=== PATIENT | male | born 1965 | race Caucasian/White ===

== ENCOUNTER 2016-12-12 11:51 | Emergency (ER) | payer MEDICAID ==
[2016-12-12 11:55] VITALS: TEMP 98.2
[2016-12-12] MEDS ORDERED: NS 1,000 ML IV ONE (12:27)
[2016-12-12 12:56] LABS: HEMATOCRIT 44.2 % (40.0-51.0); HEMOGLOBIN 15.5 g/dL (13.7-17.5); MEAN CELL HEMOGLOBIN 34.6 pg (27.9-34.1); MEAN CELL HEMOGLOBIN CONCENTR. 35.1 g/dL (32.4-36.7); MEAN CELL VOLUME 98.7 fL (81.5-99.8); RED BLOOD CELL COUNT 4.48 10^6/uL (4.40-6.38); RED CELL DISTRIBUTION WIDTH 13.1 % (11.5-15.2)
[2016-12-12 13:06] LABS: ALANINE AMINOTRANSFERASE 49 IU/L (21-72); ALBUMIN 4.3 g/dL (3.5-5.0); ALKALINE PHOSPHATASE 92 IU/L (38-126); ANION GAP 14 mEq/L (8-16); ASPARTATE AMINOTRANSFERASE 83 IU/L (17-59); BILIRUBIN,TOTAL 0.6 mg/dL (0.1-1.4); CARBON DIOXIDE 21 mEq/l (22-31); CHLORIDE 107 mEq/L (97-110); CREATININE 0.7 mg/dL (0.7-1.3); GLOMERULAR FILTRATION RATE > 60; GLUCOSE 111 mg/dL (70-100); POTASSIUM 4.9 mEq/L (3.5-5.2); SODIUM 142 mEq/L (134-144); TOTAL PROTEIN 7.4 g/dL (6.3-8.2)
--- NOTE | 2016-12-12 13:36 | EDPHY ---
General - History Smoking Status: Current every day smoker Narrative: CHIEF COMPLAINT: Right lower quadrant pain, hernia HISTORY OF PRESENT ILLNESS: Patient complains of hernia of the right inguinal region. This been present since June. Symptoms wax and wane at . Now he has had pains or 3 days. 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 It does come and go. He can feel the hernia reduced at times. He feels that the pain is severe and is too much as the hernia seems to be problematic with minimal bearing down and even when he coughs. No difficulty with bowel movements. He has had some nausea and diaphoresis. No generalized abdominal pain no other associated complaints or modifying factors. No previous abdominal surgeries as an adult. One as a 3-month-old child that he does not know about. REVIEW OF SYSTEMS: Ten systems reviewed and are negative unless otherwise noted in the HPI PAST MEDICAL HISTORY: Denies PAST SURGICAL HISTORY: Unknown surgery at 3mos of age SOCIAL HISTORY: Smokes cigarettes. Daily tobacco use. Marijuana use FAMILY HISTORY: Non-contributory EXAMINATION General Appearance: Alert, no distress Head: normocephalic, atraumatic Eyes: Pupils equal and round, no conjunctival pallor or injection ENT, Mouth: Mucous membranes moist Neck: Normal inspection, supple, non-tender Respiratory: Lungs are clear to auscultation. Mild rhonchi. No wheezing. No consolidation Cardiovascular: Regular rate and rhythm. no murmur symmetric distal pulses. Gastrointestinal: Abdomen is soft and nondistended. Tenderness and fullness in the right inguinal canal. Palpable hernia that I could not reduce. Bowel sounds are present in all 4 quadrants. Neurological: A&O, nonfocal, normal gait Skin: Warm and dry, no rash no petechiae or purpura Extremities: Nontender, no pedal edema Psychiatric: Mood and affect normal DIFFERENTIAL DIAGNOSES: Including but not limited to inguinal hernia, incarcerated inguinal hernia, strangulated inguinal hernia, appendicitis, diverticulitis, colitis MDM: 1:20 p.m. Right inguinal hernia that I do not appreciate as incarcerated. He describes a paroxysmal hernia comes and goes. His concern is that it has been increasingly painful and easily herniated with minimal Valsalva. Vital signs stable. I have ordered CT scan of the abdomen and pelvis. CBC is unremarkable. Chemistry is pending. 2:30 p.m. Case discussed with radiologist. No evidence of hernia. There is incidental note a left-sided adrenal abnormality as documented. 2:55 p.m. Case discussed with Dr. Feliz. We discussed the history, physical exam and CT findings. This includes the incidental adrenal nodule findings. Dr. Feliz recommends patient follow up with General surgery outpatient. He recommends next available appointment within the next week. Also recommend standard hernia precautions. 3:00 p.m. Case discussed with the patient and spouse. I informed him of the incidental finding of the left adrenal mass. I informed him of the recommended follow-up for both this and the hernia. We discussed ED precautions for worsening pain, vomiting, constipation, fever. They was her understanding of this. He is discharged home with pain medication, light duty instructions and outpatient follow-up with General surgery. (Gordon Santiago) Medical Decision Making: The patient was evaluated and managed by the Physician Beauty Operator. My co- signature indicates that I have reviewed this chart and I agree with the findings and plan of care as documented. I am the secondary supervising physician. (Melly Mahoney) - Objective Vital Signs: Initial Vital Signs Temperature (C) 36.8 C 12/12/16 11:51 Heart Rate 109 H 12/12/16 11:51 Respiratory Rate 18 12/12/16 11:51 Blood Pressure 124/91 H 12/12/16 11:51 O2 Sat (%) 94 12/12/16 11:51 O2 Delivery Mode Room Air Allergies/Adverse Reactions: No Known Allergies Allergy (Verified 10/04/13 22:01) Home Medications: Medication Instructions Recorded Hydrocodone/APAP 5/325 [Zenda 1 - 2 tab PO Q4H PRN #13 tab 12/12/16 5/325 (*)] Laboratory Results: Laboratory Results 12/12/16 12:25 12/12/16 12:25 Medications Given: Discontinued Medications Sodium Chloride (Ns) 1,000 mls @ 0 mls/hr IV ONCE ONE; Wide Open PRN Reason: Protocol Stop: 12/12/16 12:28 Last Admin: 12/12/16 12:28 Dose: 1,000 mls Departure - Departure Disposition: Home, Routine, Self-Care Clinical Impression: Inguinal hernia of right side without obstruction or gangrene, Mass of uncertain behavior of adrenal gland Condition: Good Instructions: Inguinal Hernia (ED) Additional Instructions: 1. Follow up with General surgery for definitive care for hernia and further workup of the adrenal mass 2. Return to ER for worsening pain, fever, chills, constipation or vomiting 3. Light active duty Referrals: NONE *PRIMARY CARE P,. [Primary Care Provider] - As per Instructions Igor Morocho MD [Medical Doctor] - As per Instructions Stand Alone Forms: Work Limited Duty Prescriptions: Hydrocodone/APAP 5/325 [Zenda 5/325 (*)] 1 - 2 tab PO Q4H PRN #13 tab PRN Reason: Pain, Moderate
[2016-12-12] MEDS ORDERED: IOPAMIDOL (ISOVUE-300) 100 ML BTL ONE (13:44)
[2016-12-12 15:04] VITALS: BP 138/77; PULSE 80; RESP 14; O2SAT 97
== END 2016-12-12 15:04 | disposition home or self-care (01) ==
DX: K40.90 Unilateral inguinal hernia, without obstruction or gangrene, not specified as recurrent (principal); D44.10 Neoplasm of uncertain behavior of unspecified adrenal gland; F17.210 Nicotine dependence, cigarettes, uncomplicated; E86.9 Volume depletion, unspecified
CPT/HCPCS: Q9967

== ENCOUNTER 2016-12-26 06:12 | Inpatient (IN) | payer MEDICAID ==
[~2016-12-26 06:12] MED LIST: ceFAZolin 2 GM/DEXTROSE 100 ML IV ONE
--- NOTE | 2016-12-26 07:20 | PDHPUP ---
History & Physical Update H&P update statement: This history and physical update is based on an assessment of the patient which was completed after admission or registration (within 24 hours), but prior to the surgery/procedure. H&P update: H&P reviewed & patient examined, no change in patient's condition since H&P completed
[2016-12-26] MEDS: NICOTINE 14 MG/24 HR PATCH TD SCH ×2 (07:24→13:40)
[2016-12-26] MEDS: ceFAZolin 2 GM/DEXTROSE 100 ML IV ONE ×2 (07:24→09:11)
[2016-12-26] MEDS ORDERED: LIDOCAINE 1% 2 ML INJ ID PRN (07:38)
[2016-12-26] MEDS ORDERED: LR 1,000 ML IV ONE (07:38)
[2016-12-26] MEDS ORDERED: HYDROmorphONE/DILAUDID 1 MG/ML INJ IVP PRN ×2 (08:40→12:17)
[2016-12-26] MEDS ORDERED: ALBUTEROL 3 ML DEYVIAL IH PRN (08:40)
[2016-12-26] MEDS ORDERED: OXYCODONE/APAP 5/325 TAB PO PRN (08:40)
[2016-12-26] MEDS ORDERED: NALOXONE HCL 0.4 MG/ML INJ IVP PRN (08:40)
[2016-12-26] MEDS ORDERED: ONDANSETRON 4 MG/2 ML VIAL IVP PRN ×2 (08:40→12:17)
--- NOTE | 2016-12-26 08:42 | PDANEPAE ---
ANE History of Present Illness adrenalectomy ANE Past Medical History - Cardiovascular History Hx Hypertension: No Hx Arrhythmias: No Hx Chest Pain: No Hx Coronary Artery / Peripheral Vascular Disease: No Hx CHF / Valvular Disease: No Hx Palpitations: No - Pulmonary History Hx COPD: No Hx Asthma/Reactive Airway Disease: No Hx Recent Upper Respiratory Infection: No Hx Oxygen in Use at Home: No Hx Sleep Apnea: No Sleep Apnea Screening Result - Last Documented: Negative - Neurologic History Hx Cerebrovascular Accident: No Hx Seizures: No Hx Dementia: No - Endocrine History Hx Diabetes: No - Renal History Hx Renal Disorders: No - Liver History Hx Hepatic Disorders: No - Neurological & Psychiatric Hx Hx Neurological and Psychiatric Disorders: No - Cancer History Hx Cancer: No - Congenital Disorder History Hx Congenital Disorders: No - GI History Hx Gastrointestinal Disorders: Yes Gastrointestinal History Comment: INTERMITTENT REFLUX - Chronic Pain History Chronic Pain: Yes (RT GROIN) - Surgical History Prior Surgeries: NONE ANE Review of Systems Review of Systems: - Exercise capacity METS (RN): 4 METS ANE Patient History - Allergies Allergies/Adverse Reactions: No Known Allergies Allergy (Verified 10/04/13 22:01) - Home Medications Home Medications: NK [No Known Home Meds] 12/23/16 [Last Taken Unknown] - NPO status NPO Since - Liquids (Date): 12/25/16 NPO Since - Liquids (Time): 17:00 NPO Since - Solids (Date): 12/25/16 NPO Since - Solids (Time): 17:00 - Smoking Hx Smoking Status: Heavy smoker - Family Anes Hx Family Hx Anesthesia Complications: NEG ANE Labs/Vital Signs - Vital Signs Blood Pressure: 123/68 Heart Rate: 69 Respiratory Rate: 16 O2 Sat (%): 98 Height: 182.88 cm Weight: 72.575 kg ANE Physical Exam - Airway Neck exam: FROM Mallampati Score: Class 2 Mouth exam: poor dentition - Pulmonary Pulmonary: clear to auscultation - Cardiovascular Cardiovascular: regular rate and rhythym - ASA Status ASA Status: II ANE Anesthesia Plan Anesthesia Plan: general endotracheal anesthesia
[2016-12-26] MEDS ORDERED: MIDAZOLAM 2 MG/2 ML VIAL IVP ONE (08:43)
[2016-12-26] MEDS ORDERED: HYDROmorphONE/DILAUDID 2 MG/ML INJ ONE (08:46)
[2016-12-26] MEDS ORDERED: PROPOFOL 200 MG/20 ML VIAL ONE (08:47)
[2016-12-26] MEDS ORDERED: LIDOCAINE 2% 5 ML SDV ONE (08:47)
[2016-12-26] MEDS ORDERED: ROCURONIUM 50 MG/5 ML VIAL ONE (08:49)
[2016-12-26] MEDS ORDERED: BUPIVACAINE 0.5% 30 ML SDV ONE (08:49)
[2016-12-26] MEDS ORDERED: HEPARIN 1000 UNIT/1 ML MDV ONE (08:50)
[2016-12-26] MEDS ORDERED: ONDANSETRON 4 MG/2 ML VIAL ONE (08:50)
[2016-12-26] MEDS ORDERED: DEXAMETHASONE 4 MG/ML VIAL ONE (08:50)
[2016-12-26] MEDS ORDERED: ROCURONIUM 100 MG/10 ML VIAL ONE (09:35)
[2016-12-26] MEDS ORDERED: NEOSTIGMINE METHYLSULFATE 3 MG/3 ML SYR ONE (10:45)
[2016-12-26] MEDS ORDERED: epHEDrine SULFATE 10 MG/ML SYR ONE (10:46)
[2016-12-26] MEDS ORDERED: SUGAMMADEX SODIUM 200 MG/2 ML VIAL IVP ONE (11:51)
--- NOTE | 2016-12-26 12:15 | POSTANESTH ---
Post Anesthetic Evaluation Cardiovascular Status: Normal, Stable Respiratory Status: Normal, Stable Level of Consciousness/Mental Status: Can Participate in Eval, Alert and Oriented Pain Control: Adequate, Prn Tx Ordered Nausea/Vomiting Control: Adequate, Prn Tx Ordered Complications Possibly Related to Anesthesia: None Noted
[2016-12-26] MEDS ORDERED: fentaNYL 100 MCG/2 ML INJ ONE (12:16)
[2016-12-26] MEDS ORDERED: ONDANSETRON DISINTEGRATING 4 MG TAB PO PRN (12:17)
[2016-12-26] MEDS ORDERED: ACETAMINOPHEN 325 MG TAB PO PRN (12:17)
[2016-12-26] MEDS: fentaNYL 100 MCG/2 ML INJ IVP PRN ×2 (12:18→12:27)
--- NOTE | 2016-12-26 12:23 | POSTOPPROG ---
Post Op Note Date of Operation: 12/26/16 Surgeon: Igor Morocho Hotel Baggage Handler: Shahnaz Cartwright Anesthesiologist: Padmini Anesthesia: GET(General Endotracheal) Pre-op Diagnosis: Left adrenal mass, right inguinal hernia Post-op Diagnosis: same Indication: pain Procedure: Left adrenalectomy, right inguinal hernia repair with mesh Findings: Adrenal mass, right inguinal hernia Inf/Abcess present in the surg proc area at time of surgery?: No Depth: Deep Incisional (Fascial) EBL: Minimal Specimen(s): Left adrenal mass
[2016-12-26] MEDS ORDERED: NS 1,000 ML IV SCH (12:30)
[2016-12-26] MEDS ORDERED: HYDROmorphONE/DILAUDID 1 MG/ML INJ ONE (12:32)
[2016-12-26] MEDS ORDERED: LORazepam 2 MG/ML INJ IVP PRN ×2 (14:04→15:25)
[2016-12-26] MEDS ORDERED: THIAMINE HCL 500 MG in NS 100 ML IV ONE (15:25)
[2016-12-26] MEDS ORDERED: chlordiazePOXIDE 25 MG CAP PO PRN (15:25)
[2016-12-26] MEDS ORDERED: chlordiazePOXIDE 25 MG CAP PO ONE (15:30)
--- NOTE | 2016-12-26 15:39 | ASMTCMCOM ---
CM Note CM Note Notes: Pt. is a 51-year-old man admitted for a hernia surgery and a left adrenalectomy. Pt. w/ hx. of substance abuse, 3-4 beers/day, and a smoker. 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 Pt's girlfriend, Shahnaz Sandoval states that she and Pt. live in a van with their two dogs. Shahnaz states they have been together for some "10 months". Shahnaz calling to request that Pt. be allowed to d/c to a respite hotel to rest for two days or so. Shahnaz states she benefitted from the program after one of her hospitalizations and was very grateful. Shahnaz also noted that Pt. would like alternative pain medication to opioids at d/c due to Pt's history. Per Shahnaz, Pt. has sucessfully used tramadol and ibuprofen in past for pain without risk of addiction. Vannessa emailed CM supervisors about respite hotel request. Will f/u with Shahnaz tomorrow. Date Signed: 12/26/2016 03:38 PM Electronically Signed By:Emily Newman LCSW
[2016-12-26] MEDS: OXYCODONE/APAP 5/325 TAB PO PRN ×2 (15:55→19:53)
[2016-12-26] MEDS: NICOTINE 21 MG/24 HR PATCH TD SCH (18:23)
[2016-12-26] MEDS: NICOTINE POLACRILEX 2 MG GUM B PRN ×2 (18:23→19:54)
[2016-12-26] MEDS: LORazepam 1 MG TAB PO PRN (19:52)
[2016-12-27 03:57] VITALS: BP 117/84; PULSE 90; RESP 18; TEMP 97.5; O2SAT 95
[2016-12-27] MEDS: OXYCODONE/APAP 5/325 TAB PO PRN ×2 (04:06→08:41)
[2016-12-27] MEDS: LORazepam 1 MG TAB PO PRN (04:06)
[2016-12-27] MEDS: NICOTINE 21 MG/24 HR PATCH TD SCH (08:42)
[2016-12-27] MEDS ORDERED: NICOTINE 14 MG/24 HR PATCH TD SCH (09:00)
[2016-12-27] MEDS ORDERED: THIAMINE HCL 500 MG in NS 100 ML IV SCH (09:00)
[2016-12-27 10:48] LABS: % IMMATURE GRANULYOCYTES 0.3 % (0.0-1.1); ABSOLUTE IMMATURE GRANULOCYTES 0.03 10^3/uL (0.00-0.10); ADD DIFF? NO; ADD MORPH? NO; ADD SCAN? NO; ATYPICAL LYMPHOCYTE FLAG 10 (0-99); FRAGMENT RBC FLAG 0 (0-99); HEMATOCRIT 46.6 % (40.0-51.0); HEMOGLOBIN 16.1 g/dL (13.7-17.5); LEFT SHIFT FLG 0 (0-99); LIPEMIA HEMOLYSIS FLAG 90 (0-99); MEAN CELL HEMOGLOBIN 34.5 pg (27.9-34.1); MEAN CELL HEMOGLOBIN CONCENTR. 34.5 g/dL (32.4-36.7); PLATELET CLUMPS FLAG 10 (0-99); PLATELET COUNT 145 10^3/uL (150-400); RED BLOOD CELL COUNT 4.66 10^6/uL (4.40-6.38); RED CELL DISTRIBUTION WIDTH 12.5 % (11.5-15.2)
[2016-12-27 11:07] LABS: ALANINE AMINOTRANSFERASE 64 IU/L (21-72); ALBUMIN 4.1 g/dL (3.5-5.0); ALKALINE PHOSPHATASE 99 IU/L (38-126); ANION GAP 10 mEq/L (8-16); ASPARTATE AMINOTRANSFERASE 52 IU/L (17-59); BILIRUBIN,TOTAL 0.9 mg/dL (0.1-1.4); CALCIUM 9.2 mg/dL (8.5-10.4); CARBON DIOXIDE 26 mEq/l (22-31); CHLORIDE 97 mEq/L (97-110); CREATININE 0.8 mg/dL (0.7-1.3); GLOMERULAR FILTRATION RATE > 60; GLUCOSE 123 mg/dL (70-100); SODIUM 133 mEq/L (134-144); TOTAL PROTEIN 7.2 g/dL (6.3-8.2)
--- NOTE | 2016-12-27 11:26 | SOAPPROG ---
SOAP Progress Note Assessment/Plan: Assessment: 51yo M POD #1 s/p RIH repair and left adrenalectomy. Recovering well. Pathology pending. Cont pain control Dispo: to hotel respit today. d/w social work. S: pt eager to go home. Feels well. Pain is controlled. Tolerating diet and having BMs. O: Pt sitting up in bed, NAD MMM Abd soft, nontender Multiple lap incisions c/d/i with steri strips/dermabond Objective: Vital Signs Temp Pulse Resp BP Pulse Ox 36.4 C 90 18 117/84 H 95 12/27/16 03:54 12/27/16 03:54 12/27/16 03:54 12/27/16 03:54 12/27/16 03:54 Laboratory Results 12/27/16 10:42 12/27/16 10:42 12/26/16 12/27/16 12/28/16 05:59 05:59 05:59 Intake Total 2387 Output Total 595 Balance 1792 ICD10 Worksheet Patient Problems: Problems Problem Status Onset Adrenal mass, left Acute Inguinal hernia Acute - ICD10 Problem Qualifiers (1) Adrenal mass, left (2) Inguinal hernia
--- NOTE | 2016-12-27 12:19 | ASMTCMCOM ---
CM Note CM Note Notes: Today Pt. being d/c'ed. Adriánr consulted w/ CM Wet Roaster who authorized [facility] [address] [place] [address] , Confirmation # [id number]. Adriánr also set up HC RN to visit hotel tomorrow and set up [facility] f/u appt. for 12/30/16 at 10:30 show up time. Green pod w/ Carolina Mccrary NP. Pt. does not want opioids due to a past hx. of drug abuse. Waiting on [facility] to assist w/ provision of over the counter medications of acetaminophen and ibuprofen. Pt. to d/c to his girlfriend Shahnaz Sandoval who will drive van to [place] [facility]. Shahnaz states they have access to adequate food. Date Signed: 12/27/2016 12:18 PM Electronically Signed By:Emily Newman LCSW
[2016-12-28] MEDS ORDERED: ENOXAPARIN 40 MG/0.4 ML SYR SC SCH (09:00)
[2016-12-29] MEDS ORDERED: THIAMINE HCL 100 MG TAB PO SCH (09:00)
--- NOTE | 2017-01-01 04:17 | GOP ---
[f rep st] OPERATIVE REPORT DATE OF OPERATION: 12/26/2016 SURGEON: Igor Morocho MD NOTCH MACHINE OPERATOR: Shahnaz Cartwright PA-C. ANESTHESIOLOGIST: Clyde Washington DO. PREOPERATIVE DIAGNOSIS: Symptomatic right inguinal hernia. POSTOPERATIVE DIAGNOSIS: Symptomatic right inguinal hernia. PROCEDURE PERFORMED: Laparoscopic right inguinal hernia repair and exploration of the left. FINDINGS: The patient was found to have a significant direct defect on the right. There was no evid ence of herniation on the left. ESTIMATED BLOOD LOSS: Negligible. There were no complications. He was taken to the recovery room in good condition. DESCRIPTION OF PROCEDURE: The patient was taken to the operating room where he received satisfactory general endotracheal anesthesia. He was placed in the supine position, prepped and draped in the us ua sterile fashion. An infraumbilical incision was made and dissection was carried down to the rect us sheath. This was incised. A subfascial tunnel was developed in the preperitoneal space. It was di ssected free with a balloon dissector, which was replaced with a CO2 insufflation trocar. Two other trocars were placed under direct vision in the lower midline of the abdomen. Mitch's ligament was e xposed bilaterally. The cords were mobilized bilaterally. Cords were elevated. The peritoneum was dissected off the cord structures. There were no significant sacs on either side. On the left, no a ppreciable hernia was identified. On the right, a large direct defect was freed up. Its contents re duced. Covidien polyester mesh patch was introduced and placed over the inguinal floor and anchored in place with AbsorbaTack, securing it to Mitch's ligament, to the lacunar ligament on the anterior abdominal wall and the lateral abdominal wall outside the internal ring. Hemostasis was assured. /[id number]/MODL
--- NOTE | 2017-01-01 04:27 | GOP ---
[f rep st] OPERATIVE REPORT DATE OF OPERATION: 12/26/2016 SURGEON: Igor Morocho MD SURGEON'S ASSISTANT: Shahnaz Cartwright PA-C. ANESTHESIOLOGIST: Clyde Washington DO. PREOPERATIVE DIAGNOSIS: Left adrenal mass. POSTOPERATIVE DIAGNOSIS: Left adrenal mass. PROCEDURE PERFORMED: Laparoscopic left adrenalectomy. FINDINGS: The patient was found to have a 3.5 cm mass in his left adrenal gland, which appeared to b e grossly benign. No evidence of metastatic disease. ESTIMATED BLOOD LOSS: Negligible. There were no complications. He was taken to the recovery room in good condition. DESCRIPTION OF PROCEDURE: The patient in the operating room with general endotracheal anesthesia by Dr. Washington. He was placed in the right lateral decubitus position and prepped and draped in the usual sterile fashion. A Veress needle was inserted through a short incision in the left upper quadrant. Pneumoperitoneum was established. Trocar was introduced. Laparoscope introduced. Good visualizati on was obtained. Three other trocars were placed in the upper abdomen under direct vision. Using th e Harmonic Scalpel, adhesions were taken down. The splenic flexure of the colon was mobilized and dr opped away from the spleen. The lienorenal ligament was elevated, then it was divided and the spleen and pancreas were elevated up and allowed to retract anteriorly. The retroperitoneum was then entere d. The adrenal gland was identified. It was easily dissected free from surrounding structures and o ff the posterior aspect of the retroperitoneum. Multiple arterial branches were divided with hemocli ps or with the Harmonic Scalpel as the circumference of the adrenal gland was mobilized and elevated up off the fascia. The adrenal veins were isolated. They were multiply hemoclipped and then divided . This allowed the complete mobilization of the gland, which was freed up and then placed in a speci men bag. One of the trocar sites were slightly enlarged and [facility] and thought to be benign. The wound was irrigated. Hemostasis was assured. Trocars were rem hosea under direct vision. Trocar sites were closed with 0 Vicryl for the fascia, 4-0 Monocryl subcut icular stitch for the skin. All layers were infiltrated with 0.5% Marcaine. PATHOLOGY: Pending. /[id number]/MODL
== END 2016-12-27 12:45 | disposition home or self-care (01) | DRG 352 ==
LOC: FSGY 06:12 → F3E 12:17 → OBSVTOIN 12:17 → F3E 13:25
PROVIDERS: ADMIT Surgery; ATTEND Surgery
DX: K40.90 Unilateral inguinal hernia, without obstruction or gangrene, not specified as recurrent (principal); D35.02 Benign neoplasm of left adrenal gland; F17.210 Nicotine dependence, cigarettes, uncomplicated
CPT/HCPCS: C1727; C1781; J0690; J1100; J1170; J2060; J2250; J2405; J2704; J2710; J3010; J3411

== ENCOUNTER 2017-04-13 15:04 | Emergency (ER) | payer MEDICAID ==
[2017-04-13 15:09] VITALS: RESP 16
--- NOTE | 2017-04-13 15:30 | EDPHY ---
H & P Time Seen by Provider: 04/13/17 15:29 HPI/ROS: CHIEF COMPLAINT: Vomiting, back pain, chills HISTORY OF PRESENT ILLNESS: The patient is a 52 y/o male with a history of alcohol dependance complaining of nausea, vomiting, and chills. Onset of nausea and vomiting this morning, unable to tolerate any oral fluids today. He has associated myalgias, sweating , and a mild headache. He denies abdominal pain, fever, cough, or any other associated symptoms. He is a pack a day smoker and a six pack a day drinker. He reports he is not withdrawing. REVIEW OF SYSTEMS: A 10 point review of systems was performed and is negative with the exception of the elements mentioned in the history of present illness. Past Medical/Surgical History: 1. Hernia surgery November 2016 2. Adrenal tumor removal November 2016 3. Alcohol withdrawal Social History: Works in construction, pack a day smoker, 6 pack a day drinker Smoking Status: Current every day smoker Physical Exam: General Appearance: Alert, anxious, tremulous, under two blankets Eyes: Pupils equal and round, no conjunctival pallor or injection ENT, Mouth: Mucous membranes moist Neck: Normal inspection Respiratory: Lungs are clear to auscultation Cardiovascular: Regular rate and rhythm Gastrointestinal: Abdomen is soft and non-tender Neurological: A&O, nonfocal exam Skin: Warm and dry, no rash Extremities: Nontender, no pedal edema Psychiatric: Mood and affect normal Constitutional: Initial Vital Signs Temperature (C) 36.9 C 04/13/17 15:06 Heart Rate 104 H 04/13/17 15:06 Respiratory Rate 16 04/13/17 15:06 Blood Pressure 147/96 H 04/13/17 15:06 O2 Sat (%) 98 04/13/17 15:06 O2 Delivery Mode Room Air Allergies/Adverse Reactions: No Known Allergies Allergy (Verified 10/04/13 22:01) Home Medications: Medication Instructions Recorded Ibuprofen [Motrin (*)] 200 mg PO DAILY PRN 12/26/16 Acetaminophen [Tylenol 325mg (*)] 650 mg PO Q4HRS PRN tab 12/27/16 Oseltamivir Phosphate [Tamiflu 75 75 mg PO BID #10 cap 04/13/17 mg (RX)] Medical Decision Making - Diagnostics Imaging Results: Imaging Impressions Abdomen Ultrasound 01/14/18 16:16 Impression: 1. Fatty hepatic replacement, otherwise negative right upper quadrant sonogram. Results called to Dr. Gayle at 5:25 PM. ED Course/Re-evaluation: This patient presents with acute vomiting and diarrhea. He is quite tremulous on exam, which is suspicious of alcohol withdrawal, but he states that he is not experiencing withdrawal symptoms. I will treat him with IV normal saline 1 L, Zofran 4 mg IV and Ativan 1 mg IV. 4:40pm- feels better, less nausea, requests ice chips. Abd remains benign. LFTs are elevated, which is a new finding for him. Right upper quadrant ultrasound ordered. 5:44 PM- I reassessed the patient and found that his condition has improved. He currently has no nausea and is tolerating liquids. I informed him of the results of his workup so far. 5:57 PM- Flu swab is positive for influenza B. I informed him of this results. I have provided him with a prescription for Tamiflu and instructed him to follow up with his primary care provider in 3 to 4 days if he is not improving. The patient wants to go home and agrees to this course of action. Differential Diagnosis: Differential diagnosis includes though it is not limited to appendicitis, cholecystitis, diverticulitis, pyelonephritis, bowel perforation, small bowel obstruction. - Data Points Laboratory Results: Laboratory Results 04/13/17 15:26 04/13/17 15:26 04/13/17 04/13/17 04/13/17 17:00 15:26 15:26 WBC 5.68 10^3/uL 10^3/uL (3.80-9.50) RBC 4.86 10^6/uL 10^6/uL (4.40-6.38) Hgb 16.9 g/dL g/dL (13.7-17.5) Hct 47.4 % % (40.0-51.0) MCV 97.5 fL fL (81.5-99.8) MCH 34.8 pg H pg (27.9-34.1) MCHC 35.7 g/dL g/dL (32.4-36.7) RDW 12.4 % % (11.5-15.2) Plt Count 180 10^3/uL 10^3/uL (150-400) MPV 9.8 fL fL (8.7-11.7) Neut % (Auto) 65.1 % % (39.3-74.2) Lymph % (Auto) 15.5 % % (15.0-45.0) Robertson % (Auto) 18.0 % H % (4.5-13.0) Eos % (Auto) 0.2 % L % (0.6-7.6) Baso % (Auto) 0.7 % % (0.3-1.7) Nucleat RBC Rel Count 0.0 % % (0.0-0.2) Absolute Neuts (auto) 3.70 10^3/uL 10^3/uL (1.70-6.50) Absolute Lymphs (auto) 0.88 10^3/uL L 10^3/uL (1.00-3.00) Absolute Monos (auto) 1.02 10^3/uL H 10^3/uL (0.30-0.80) Absolute Eos (auto) 0.01 10^3/uL L 10^3/uL (0.03-0.40) Absolute Basos (auto) 0.04 10^3/uL 10^3/uL (0.02-0.10) Absolute Nucleated RBC 0.00 10^3/uL 10^3/uL (0-0.01) Immature Gran % 0.5 % % (0.0-1.1) Immature Gran # 0.03 10^3/uL 10^3/uL (0.00-0.10) Sodium 139 mEq/L mEq/L (135-145) Potassium 4.8 mEq/L mEq/L (3.5-5.2) Chloride 94 mEq/L L mEq/L (97-110) Carbon Dioxide 29 mEq/l mEq/l (22-31) Anion Gap 16 mEq/L mEq/L (8-16) BUN 10 mg/dL mg/dL (7-23) Creatinine 0.9 mg/dL mg/dL (0.7-1.3) Estimated GFR > 60 Glucose 84 mg/dL mg/dL (70-100) Calcium 10.1 mg/dL mg/dL (8.5-10.4) Total Bilirubin 0.8 mg/dL mg/dL (0.1-1.4) Conjugated Bilirubin 0.5 mg/dL mg/dL (0.0-0.5) Unconjugated Bilirubin 0.3 mg/dL mg/dL (0.0-1.1) AST 562 IU/L H IU/L (17-59) ALT 321 IU/L H IU/L (21-72) Alkaline Phosphatase 152 IU/L H IU/L (38-126) Total Protein 9.0 g/dL H g/dL (6.3-8.2) Albumin 4.9 g/dL g/dL (3.5-5.0) Lipase 156 IU/L IU/L (23-300) Nasal Influenza A PCR NEGATIVE FOR FLU A (NEGATIVE) Nasal Influenza B PCR FLU B DETECTED H (NEGATIVE) Medications Given: Discontinued Medications Sodium Chloride (Ns) 1,000 mls @ 0 mls/hr IV EDNOW ONE; Wide Open PRN Reason: Protocol Stop: 04/13/17 15:57 Last Admin: 04/13/17 16:12 Dose: 1,000 mls Lorazepam (Ativan Injection) 1 mg IVP EDNOW ONE Stop: 04/13/17 15:58 Last Admin: 04/13/17 16:12 Dose: 1 mg Ondansetron HCl (Zofran) 4 mg IVP EDNOW ONE Stop: 04/13/17 15:57 Last Admin: 04/13/17 16:13 Dose: 4 mg Departure - Departure Disposition: Home, Routine, Self-Care Clinical Impression: Influenza Condition: Good Instructions: Influenza (ED) Additional Instructions: 1. Take 1 tablet of Zofran under your tongue as directed as needed for nausea. Drink clear fluids like water, gatorade, mani afshan, and chicken stock. Introduce bland foods like rice, bananas, applesauce, and toast as tolerated. 2. Take Tamiflu as directed. 3. Please call and make an appointment with your primary care provider in 3 to 4 days. Please inform them of the results of your labs today. 4. Return to the ED for persistent vomiting or any concerns. Referrals: [facility],. [Clinic] - As per Instructions Prescriptions: Oseltamivir Phosphate [Tamiflu 75 mg (RX)] 75 mg PO BID #10 cap Report Scribed for: Yoli Gayle Report Scribed by: Karen Starr Date of Report: 01/14/18 Time of Report: 15:29 Physician Review and Approval Statement: 04/13/17 15:29 Portions of this note were transcribed by a emergency medical service manager. I personally performed a history, physical exam, medical decision making, and confirmed accuracy of information the transcribed note.
[2017-04-13] MEDS ORDERED: ONDANSETRON 4 MG/2 ML VIAL IVP ONE (15:56)
[2017-04-13] MEDS ORDERED: NS 1,000 ML IV ONE (15:56)
[2017-04-13] MEDS ORDERED: LORazepam 2 MG/ML INJ IVP ONE (15:57)
[2017-04-13 16:01] LABS: PLATELET COUNT 180 10^3/uL (150-400)
[2017-04-13 18:23] VITALS: BP 128/84; PULSE 71; TEMP 100.2; O2SAT 94
== END 2017-04-13 18:21 | disposition home or self-care (01) ==
DX: J10.1 Influenza due to other identified influenza virus with other respiratory manifestations (principal); F17.200 Nicotine dependence, unspecified, uncomplicated; E86.9 Volume depletion, unspecified
CPT/HCPCS: 96374; J2060; J2405

== ENCOUNTER 2017-04-19 12:59 | Emergency (ER) | payer MEDICAID ==
[2017-04-19] MEDS ORDERED: NS 1,000 ML IV ONE (13:43)
[2017-04-19] MEDS ORDERED: ONDANSETRON 4 MG/2 ML VIAL IVP ONE (13:43)
[2017-04-19 14:24] LABS: PLATELET COUNT 161 10^3/uL (150-400)
--- NOTE | 2017-04-19 16:07 | EDPHY ---
H & P Stated Complaint: "Sick again" Didn't finish Tamiflu;here 6 days ago;ETOH this morning Time Seen by Provider: 04/19/17 13:28 HPI/ROS: Chief complaint: Nausea and vomiting History of present illness: This is a 52-year-old male who presents to the emergency department for evaluation nausea and vomiting. Patient was seen here nearly a week ago. Diagnosed with influenza B. He was started on Tamiflu but did not finish it. He states over the last few days he started feel worse again. Persistent nausea and vomiting. He is unable to keep drinker food down. When he vomits he has abdominal pain otherwise his abdomen does not particularly bother him. He does not have any diarrhea. Because he is not eating he has not had significant bowel movements. He does continue to have a cough without sputum production. No trouble breathing. He denies any fevers. He denies any rashes. Review of systems: A 10 point review of systems was obtained and other than described above was negative - Personal History Current Tetanus Diphtheria and Acellular Pertussis (TDAP): Yes - Medical/Surgical History Hx Asthma: No Hx Chronic Respiratory Disease: No Hx Diabetes: No Hx Cardiac Disease: No Hx Renal Disease: No Hx Cirrhosis: No Hx Alcoholism: Yes Hx HIV/AIDS: No Hx Splenectomy or Spleen Trauma: No Other PMH: ETOH use - Social History Smoking Status: Current every day smoker - Physical Exam Exam: General Appearance: Alert, nontoxic. Eyes: Pupils equal and round no pallor or injection. ENT, Mouth: Mucous membranes moist. Respiratory: There are no retractions, lungs are clear to auscultation. Cardiovascular: Regular rate and rhythm. Gastrointestinal: Bowel sounds are normal. Abdomen is soft and nondistended. No significant tenderness. No peritoneal signs. Neurological: Alert and oriented x4. Strength and sensation intact and symmetrical. Skin: Warm and dry, no rashes. Musculoskeletal: Neck is supple non tender. Extremities are symmetrical, full range of motion. Psychiatric: Patient is oriented X 3, there is no agitation. Constitutional: Initial Vital Signs Temperature (C) 36.5 C 04/19/17 13:10 Heart Rate 92 04/19/17 13:10 Respiratory Rate 18 04/19/17 13:10 Blood Pressure 145/98 H 04/19/17 13:10 O2 Sat (%) 97 04/19/17 13:10 O2 Delivery Mode Room Air Allergies/Adverse Reactions: No Known Allergies Allergy (Verified 04/19/17 13:18) Home Medications: Medication Instructions Recorded Ondansetron Odt [Zofran Odt 4 mg 4 mg PO Q4 #10 tab 04/19/17 (*)] Medical Decision Making - Diagnostics Imaging Results: Imaging Impressions Chest X-Ray 04/19/17 13:44 Impression: Findings most consistent with airways disease are noted. Imaging: I viewed and interpreted images myself ED Course/Re-evaluation: Patient seen under the supervision of my secondary supervising physician Dr. Kenneth Baltazar. Patient presents to the emergency department for nausea and vomiting. On presentation he is nontoxic. He has a benign physical exam. Blood studies are obtained, LFTs are improving from his last visit, slightly decreased bicarb likely from vomiting. No other significant findings. Chest x- ray is obtained and unremarkable. I have reviewed records from his last visit, he did have a right upper quadrant ultrasound at that time. He has been treated with IV fluids, pain medication and antiemetics and is feeling much better. I have offered further evaluation with a CT scan of the abdomen and pelvis but he has declined. He is requesting to be discharged home. Home care is discussed including the use of Zofran. He is to follow up with his primary care doctor for recheck. Strict return precautions are given. The patient voiced understanding and agreement with plan. Differential Diagnosis: Included but not limited to influenza, gastritis, gastroenteritis, biliary tract disease, pancreatitis, hepatitis, colitis, alcohol withdrawal - Data Points Laboratory Results: Laboratory Results 04/19/17 14:17 04/19/17 14:17 04/19/17 04/19/17 14:17 14:17 WBC 8.73 10^3/uL 10^3/uL (3.80-9.50) RBC 4.54 10^6/uL 10^6/uL (4.40-6.38) Hgb 16.1 g/dL g/dL (13.7-17.5) Hct 43.1 % % (40.0-51.0) MCV 94.9 fL fL (81.5-99.8) MCH 35.5 pg H pg (27.9-34.1) MCHC 37.4 g/dL H g/dL (32.4-36.7) RDW 12.4 % % (11.5-15.2) Plt Count 161 10^3/uL 10^3/uL (150-400) MPV 9.8 fL fL (8.7-11.7) Neut % (Auto) 77.6 % H % (39.3-74.2) Lymph % (Auto) 13.2 % L % (15.0-45.0) [place] % (Auto) 8.5 % % (4.5-13.0) Eos % (Auto) 0.1 % L % (0.6-7.6) Baso % (Auto) 0.3 % % (0.3-1.7) Nucleat RBC Rel Count 0.0 % % (0.0-0.2) Absolute Neuts (auto) 6.77 10^3/uL H 10^3/uL (1.70-6.50) Absolute Lymphs (auto) 1.15 10^3/uL 10^3/uL (1.00-3.00) Absolute Monos (auto) 0.74 10^3/uL 10^3/uL (0.30-0.80) Absolute Eos (auto) 0.01 10^3/uL L 10^3/uL (0.03-0.40) Absolute Basos (auto) 0.03 10^3/uL 10^3/uL (0.02-0.10) Absolute Nucleated RBC 0.00 10^3/uL 10^3/uL (0-0.01) Immature Gran % 0.3 % % (0.0-1.1) Immature Gran # 0.03 10^3/uL 10^3/uL (0.00-0.10) Sodium 138 mEq/L mEq/L (135-145) Potassium 4.7 mEq/L mEq/L (3.5-5.2) Chloride 101 mEq/L mEq/L (97-110) Carbon Dioxide 19 mEq/l L mEq/l (22-31) Anion Gap 18 mEq/L H mEq/L (8-16) BUN 11 mg/dL mg/dL (7-23) Creatinine 0.7 mg/dL mg/dL (0.7-1.3) Estimated GFR > 60 Glucose 59 mg/dL L mg/dL (70-100) Calcium 9.2 mg/dL mg/dL (8.5-10.4) Total Bilirubin 0.8 mg/dL mg/dL (0.1-1.4) Conjugated Bilirubin 0.4 mg/dL mg/dL (0.0-0.5) Unconjugated Bilirubin 0.4 mg/dL mg/dL (0.0-1.1) AST 193 IU/L H IU/L (17-59) ALT 159 IU/L H IU/L (21-72) Alkaline Phosphatase 123 IU/L IU/L (38-126) Total Protein 7.3 g/dL g/dL (6.3-8.2) Albumin 4.4 g/dL g/dL (3.5-5.0) Lipase 145 IU/L IU/L (23-300) Medications Given: Discontinued Medications Sodium Chloride (Ns) 1,000 mls @ 0 mls/hr IV EDNOW ONE; Wide Open PRN Reason: Protocol Stop: 04/19/17 13:44 Last Admin: 04/19/17 14:13 Dose: 1,000 mls Ondansetron HCl (Zofran) 4 mg IVP EDNOW ONE Stop: 04/19/17 13:44 Last Admin: 04/19/17 14:14 Dose: 4 mg Departure - Departure Disposition: Home, Routine, Self-Care Clinical Impression: Vomiting Qualifiers: Vomiting type: unspecified Vomiting Intractability: non-intractable Nausea presence: with nausea Qualified Code(s): R11.2 - Nausea with vomiting, unspecified Condition: Good Instructions: Acute Nausea and Vomiting (ED), Acute Abdominal Pain (ED) Additional Instructions: You have stated that you have been to [facility] in the past. Please call the clinic on Friday to schedule an appointment for follow up: [facility] [address] [place] [id number] If symptoms worsen or new symptoms develop return to the emergency room for recheck Referrals: AYAZ,MADI [Other] - As per Instructions Prescriptions: Ondansetron Odt [Zofran Odt 4 mg (*)] 4 mg PO Q4 #10 tab
[2017-04-19 16:26] VITALS: BP 122/65; PULSE 69; RESP 16; TEMP 98.6; O2SAT 94
== END 2017-04-19 16:00 | disposition home or self-care (01) ==
DX: R11.2 Nausea with vomiting, unspecified (principal); F17.200 Nicotine dependence, unspecified, uncomplicated; E86.9 Volume depletion, unspecified
CPT/HCPCS: 96374; J2405

== ENCOUNTER 2017-10-25 11:19 | Emergency (ER) | payer MEDICAID ==
[2017-10-25 11:30] VITALS: BP 102/80
--- NOTE | 2017-10-25 13:34 | EDPHY ---
H & P Stated Complaint: neck pain, getting worse Time Seen by Provider: 10/25/17 13:05 HPI/ROS: CHIEF COMPLAINT: Upper back pain HISTORY OF PRESENT ILLNESS: 52-year-old male presents with upper back pain. 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 Repetitive activity of both arms. Onset of left upper back pain 3 days ago while working. The pain increases with left arm movement and is somewhat relieved with ibuprofen/Tylenol. No radiation of pain. No shortness of breath or chest pain. REVIEW OF SYSTEMS: complete 10 point ROS negative except at noted in the HPI - Medical/Surgical History Hx Asthma: No Hx Chronic Respiratory Disease: No Hx Diabetes: No Hx Cardiac Disease: No Hx Renal Disease: No Hx Cirrhosis: No Hx Alcoholism: Yes Hx HIV/AIDS: No Hx Splenectomy or Spleen Trauma: No Other PMH: ETOH use, hernia sx - Social History Smoking Status: Current every day smoker - Physical Exam Exam: General Appearance: Alert, pleasant Eyes: Pupils equal and round, no conjunctival pallor ENT, Mouth: Mucous membranes moist Neck: Normal inspection Respiratory: Lungs are clear to auscultation Cardiovascular: Regular rate and rhythm Back: Normal inspection, tenderness over the left suprascapular and periscapular area Neurological: Alert, motor 5/5, sensory intact to light touch Skin: Warm and dry Extremities: Normal inspection, radial pulse 2 + Psychiatric: Mood and affect normal Constitutional: Initial Vital Signs Temperature (C) 36.7 C 10/25/17 11:28 Heart Rate 105 H 10/25/17 11:28 Respiratory Rate 18 10/25/17 11:28 Blood Pressure 102/80 10/25/17 11:28 O2 Sat (%) 94 10/25/17 11:28 O2 Delivery Mode Room Air Allergies/Adverse Reactions: No Known Allergies Allergy (Verified 10/25/17 11:27) Home Medications: Medication Instructions Recorded NK [No Known Home Meds] 10/25/17 Medical Decision Making ED Course/Re-evaluation: This patient presents with a thoracic back strain. Ibuprofen and Tylenol instructions given. Will try to avoid repetitive activity at work. Departure - Departure Disposition: Home, Routine, Self-Care Clinical Impression: Upper back strain Qualifiers: Encounter type: initial encounter Qualified Code(s): S29.012A - Strain of muscle and tendon of back wall of thorax, initial encounter Condition: Good Instructions: Thoracic Back Strain (ED) Additional Instructions: Ibuprofen 600 mg 3 times daily while the pain persists. Tylenol 650 mg every 4 hr as needed for pain. Referrals: [facility],. [Clinic] - As per Instructions
== END 2017-10-25 13:47 | disposition home or self-care (01) ==
DX: S29.012A Strain of muscle and tendon of back wall of thorax, initial encounter (principal); F17.200 Nicotine dependence, unspecified, uncomplicated; X50.3XXA Overexertion from repetitive movements, initial encounter; Y99.0 Civilian activity done for income or pay; Y93.89 Activity, other specified